=== PATIENT | female | born 1970 | race Caucasian/White ===

== ENCOUNTER 2018-09-04 08:22 | Emergency (ER) | payer BC ==
[2018-09-04 08:32] VITALS: BP 155/89
[2018-09-04] MEDS ORDERED: Tetan/Diph/Pertus SYR(Tdap)* 0.5 ML SYR(BOOSTRIX) use SYR IM ONE (08:41)
--- NOTE | 2018-09-04 08:41 | UC ---
Hand/Wrist HPI - HPI Summary HPI Summary: 48-year-old female presents with complaints of pain in the right thumb. States 3 days ago she dropped her cell phone and when she brushed off to screen she believes a small sliver of glass went into the palmar aspect of her distal right thumb. States it is just been mildly tender but during the night last night pain increased. Describes as a throbbing sensation. Worsens with any kind of touch. Denies any alleviating factors. Denies fever, chills, erythema , drainage, or joint pain or swelling. Tetanus status is unknown. - History Of Current Complaint Chief Complaint: UCForeignBody Stated Complaint: OBJECT IN R THUMB Time Seen by Provider: 09/04/18 08:28 Hx Obtained From: Patient ?: No Pain Intensity: 7 - Allergies/Home Medications Allergies/Adverse Reactions: Allergies Allergy/AdvReac Type Severity Reaction Status Date / Time amoxicillin Allergy Hives Verified 09/04/18 08:32 PMH/Surg Hx/FS Hx/Imm Hx Previously Healthy: Yes - Denies significant PMH - Surgical History Surgical History: None - Family History Known Family History: Positive: Non-Contributory - Social History Occupation: Employed Full-time Lives: With Family Alcohol Use: Occasionally Substance Use Type: None Smoking Status (MU): Never Smoked Tobacco - Immunization History Most Recent Tetanus Shot: Unknown Review of Systems All Other Systems Reviewed And Are Negative: Yes Constitutional: Negative: Fever, Chills Skin: Positive: Other - See HPI Respiratory: Positive: Negative Cardiovascular: Positive: Negative Gastrointestinal: Positive: Negative Genitourinary: Positive: Negative Motor: Positive: Negative Neurovascular: Positive: Negative Musculoskeletal: Positive: Negative Neurological: Positive: Negative Is Patient Immunocompromised?: No Physical Exam - Summary Physical Exam Summary: GENERAL APPEARANCE: Well developed, well nourished, alert and cooperative, and appears to be in no acute distress. CARDIAC: Normal S1 and S2. No S3, S4 or murmurs. Rhythm is regular. There is no peripheral edema, cyanosis or pallor. Extremities are warm and well perfused. Capillary refill is less than 2 seconds. Peripheral pulses intact. LUNGS: Clear to auscultation without rales, rhonchi, wheezing or diminished breath sounds. ABDOMEN: Positive bowel sounds. Soft, nondistended, nontender. No guarding or rebound. No masses or hepatosplenomegally. MUSKULOSKELETAL: ROM intact to all extremities. No joint erythema or tenderness. Normal muscular development. Normal gait. SKIN: Healing puncture wound to the medial palmar aspect of her distal right thumb with some blanching of the surrounding tissue. No erythema, induration, drainage, or foreign body is observed. Triage Information Reviewed: Yes Vital Signs: Initial Vital Signs Temp 97.7 F 09/04/18 08:29 Pulse 85 09/04/18 08:29 Resp 18 09/04/18 08:29 BP 155/89 09/04/18 08:29 Pulse Ox 97 09/04/18 08:29 Vital Signs Reviewed: Yes Diagnostics - Radiology No standard instances Radiology Interpretation Completed By: Radiologist Summary of Radiographic Findings: Order Information: THUMB RIGHT. Accession Number: [id number]. CPT: 02685. Indication: Assess for retained glass in the distal RIGHT thumb. Entrance wound marked. Comparison: No relevant prior exams available on the [facility] for comparison. Technique: AP, lateral, and oblique views RIGHT thumb. Report: No conspicuous foreign body evident at the volar tuft of the distal aspect of the. thumb. Soft tissue swelling. Negative for subcutaneous emphysema. Negative for fracture or. malalignment. 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 IMPRESSION: #. Soft tissue swelling. No retained foreign body evident. Hand/Wrist Course/Dx - Course Course Of Treatment: 48-year-old female presents with complaints of pain in the right thumb. States 3 days ago she dropped her cell phone and when she brushed off to screen she believes a small sliver of glass went into the palmar aspect of her distal right thumb. States it is just been mildly tender but during the night last night pain increased. Describes as a throbbing sensation. Worsens with any kind of touch. Denies any alleviating factors. Denies fever, chills, erythema, drainage, or joint pain or swelling. Tetanus status is unknown. Afebrile. Vital signs stable. Exam reveals an adult female in no acute distress with a healing puncture wound to the medial palmar aspect of her distal right thumb with some blanching of the surrounding tissue. No erythema, induration, drainage, or foreign body is observed. Remainder of exam is unremarkable. X-ray of the right thumb showed no evidence of a foreign body. Will place patient on cephalexin 500 mg TID x 5 days for infection and recommend soaks with warm water and Epsom salts 3-4 times a day. She is to return here or follow up with her PCP in 5 days if no improvement in symptoms. Anticipatory guidance and warning symptoms reviewed with patient. Verbalizes understanding and agrees with POC. - Differential Dx/Diagnosis Differential Diagnosis/HQI/PQRI: Foreign Body, Infection Provider Diagnosis: Foreign body of right thumb Discharge - Sign-Out/Discharge Documenting (check all that apply): Patient Departure All imaging exams completed and their final reports reviewed: Yes - Discharge Plan Condition: Stable Disposition: HOME Prescriptions: cephALEXin [Keflex] 500 mg PO TID #15 capsule Patient Education Materials: Soft Tissue Foreign Body (ED) Referrals: LISS Gee [Primary Care Provider] - 5 Days (If no improvement in symptoms. ) Additional Instructions: I was not able to visualize a foreign body on the x-ray therefore do not recommend attempting to remove at this time. We will start you on an antibiotic to treat for infection. Start cephalexin ( Keflex) 1 capsule three times a day for 5 days. Be sure to finish the entire course. With your allergy to amoxicillin there is a small risk of reaction to this medication therefore if you develop a rash, swelling of the lips, tongue, or throat, or have difficulty breathing stop immediately and seek medical attention. Soak your thumb in a warm water and Epsom salt solution 3-4 times a day to try to encourage the foreign body to come out on its own. Take over the counter ibuprofen 600 mg (3 tabs) every 8 hours as needed for pain. Keep the hand elevated at the level of your heart to help reduce swelling. You can apply ice for 15-20 mintues at a time to help with pain and swelling as well. Return here or follow up with your primary care provider in 5 days if symptoms persist for a recheck of the wound. Your blood pressure was elevated in the clinic today. It is recommended that you follow up with your primary care provider within 4 weeks to have this rechecked. Seek immediate medical attention if you develop fever greater than 100.5 F, have severe pain not managed with pain medication, redness that spreads, increased swelling, or any worsening of symptoms. - Billing Disposition and Condition Condition: STABLE Disposition: Home
== END 2018-09-04 09:09 | disposition home or self-care (01) ==
LOC: UCCORT 08:22
DX: S60.351A Superficial foreign body of right thumb, initial encounter (principal); Z88.0 Allergy status to penicillin; W45.8XXA Other foreign body or object entering through skin, initial encounter; Y92.9 Unspecified place or not applicable
CPT/HCPCS: 90471; 90715; 99212; G0463